=== PATIENT | female | born 1985 | race African-American/Black ===

== ENCOUNTER 2025-01-22 16:34 | Emergency (ER) | payer OTHER ==
[~2025-01-22] VITALS: Ht 165.1 cm; Wt 75.0 kg
[2025-01-22 16:46] VITALS: TEMP 36.8; O2SAT 98
[2025-01-22] MEDS ORDERED: CEPHALEXIN 250MG CAPSULE PO ONE (18:30)
[2025-01-22] MEDS: LIDOCAINE HCL/EPINEPHRINE 1%-EPI 1:100,000 20ML VIAL INFIL ONE (18:49)
[2025-01-22] MEDS: TETANUS, DIPHTHERIA, PERTUSSIS VAC/PF 0.5ML (>10YR OLD) IM ONE (18:49)
[2025-01-22] MEDS: CEPHALEXIN 250MG CAPSULE PO NR (20:44)
[2025-01-22] MEDS ORDERED: CEPH500C2 MT (21:23)
[2025-01-22] MEDS: IBUPROFEN 600MG TABLET PO ONE (21:32)
[2025-01-22 21:42] VITALS: BP 136/86; PULSE 88; RESP 18; O2SAT 98
[2025-01-22] MEDS ORDERED: BACITRACIN ZINC OINT UDPKT TOP ONE (21:45)
== END 2025-01-22 21:44 | disposition home or self-care (01) ==
LOC: ER 16:34
DX: S01.81XA Laceration without foreign body of other part of head, initial encounter (principal); G89.11 Acute pain due to trauma; Z79.899 Other long term (current) drug therapy; V89.2XXA Person injured in unspecified motor-vehicle accident, traffic, initial encounter; Y93.89 Activity, other specified; Y92.89 Other specified places as the place of occurrence of the external cause; Y99.8 Other external cause status
CPT/HCPCS: 70450; 90715; 12015; 90471; 99285; J2004; Z7610 ×2